=== PATIENT | female | born 1975 | race Caucasian/White ===

== ENCOUNTER 2017-05-01 17:51 | Emergency (ER) | payer OTHER ==
[2017-05-01] MEDS ORDERED: IBUPROFEN 800 MG TABLET PO ONE (19:01)
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
[2017-05-01 21:33] VITALS: BP 110/73
== END 2017-05-01 21:35 | disposition home or self-care (01) ==
LOC: ER 17:51
DX: S00.83XA Contusion of other part of head, initial encounter (principal); S00.33XA Contusion of nose, initial encounter; S16.1XXA Strain of muscle, fascia and tendon at neck level, initial encounter; M25.511 Pain in right shoulder; V49.40XA Driver injured in collision with unspecified motor vehicles in traffic accident, initial encounter; Z91.040 Latex allergy status; Z88.0 Allergy status to penicillin
CPT/HCPCS: 70486; 99283